=== PATIENT | female | born 1985 | race Caucasian/White ===

== ENCOUNTER 2016-07-14 17:04 | Emergency (ER) | payer SELFPAY ==
[~2016-07-14] VITALS: Ht 162.6 cm; Wt 48.1 kg
[~2016-07-14 17:04] MED LIST: ADDERALL XR20 MG PO; AMOXICILLIN500 MG PO; BENADRYL 50MG C50 MG PO; CHANTIX STARTIN0.5 & PO; CHANTIX1 MG PO; HYDROXYZ HCL25 MG OR; HYDROXYZ HCL25 MG PO; NAPROSYN500 MG PO; PREDNISONE5 MG PO
[2016-07-14] MEDS ORDERED: NAPROSYN500 MG PO (18:47)
[2016-07-14 19:16] VITALS: BP 107/60
== END 2016-07-14 19:16 | disposition home or self-care (01) | DRG 605 ==
LOC: ED 17:04
DX: S20.212A Contusion of left front wall of thorax, initial encounter (principal); V86.59XA Driver of other special all-terrain or other off-road motor vehicle injured in nontraffic accident, initial encounter; Y93.I9 Activity, other involving external motion; Y92.830 Public park as the place of occurrence of the external cause